=== PATIENT | male | born 1940 | race Caucasian/White ===

== ENCOUNTER 2017-08-21 10:27 | Emergency (ER) | payer MEDICARE ==
[~2017-08-21 10:27] MED LIST: AFLI2VIA IO; ASPI-1012 PO; CHOL50004 PO; FINA5TAB41 PO; LATA2.5D2 OS; LUTE1CAP4 PO; MVIT PO; OXYC5 PO; PANT40TA25 PO; PREG75 PO; TERA5CAP4 PO; VITA1TAB22 PO; [UNRECOGNIZED DRUG - OTHER] PO; [UNRECOGNIZED DRUG - OTHER] PO
== END 2017-08-21 12:03 | disposition home or self-care (01) ==
LOC: EDH 10:27
DX: S62.646A Nondisplaced fracture of proximal phalanx of right little finger, initial encounter for closed fracture (principal); S80.02XA Contusion of left knee, initial encounter; S80.01XA Contusion of right knee, initial encounter; Z88.0 Allergy status to penicillin; Z96.649 Presence of unspecified artificial hip joint; Z87.891 Personal history of nicotine dependence; W01.0XXA Fall on same level from slipping, tripping and stumbling without subsequent striking against object, initial encounter; Y93.01 Activity, walking, marching and hiking; Y92.89 Other specified places as the place of occurrence of the external cause; Y99.8 Other external cause status
CPT/HCPCS: 29130; 70450; 73130; 73562

== ENCOUNTER → 2018-04-08 | Outpatient (CLI) | payer MEDICARE ==
[~2018-04-08] MED LIST changes: +IOHEXOL 350 MG/ML 100ML INFUS..BTL IV ONE
== END | disposition home or self-care (01) ==
LOC: RAH 07:47
PROVIDERS: ATTEND Internal Medicine
DX: K76.0 Fatty (change of) liver, not elsewhere classified (principal); R16.1 Splenomegaly, not elsewhere classified; K43.9 Ventral hernia without obstruction or gangrene; M47.815 Spondylosis without myelopathy or radiculopathy, thoracolumbar region; I70.90 Unspecified atherosclerosis; J84.10 Pulmonary fibrosis, unspecified; Z90.411 Acquired partial absence of pancreas; Z90.49 Acquired absence of other specified parts of digestive tract
CPT/HCPCS: 74170; Q9967

== ENCOUNTER 2018-08-27 05:30 | Day surgery (SDC) | payer MEDICARE ==
[~2018-08-27] VITALS: Ht 180.3 cm; Wt 97.1 kg
[~2018-08-27 05:30] MED LIST changes: -IOHEXOL 350 MG/ML 100ML INFUS..BTL IV ONE
[2018-08-27] MEDS ORDERED: SODIUM CHLORIDE 0.9% 1000ML 1,000 ML IV ONE (05:52)
[2018-08-27 06:17] VITALS: BP 125/72
[2018-08-27] MEDS ORDERED: TAMS-1 PO (06:29)
[2018-08-27] MEDS ORDERED: [UNRECOGNIZED DRUG - OTHER] (06:30)
[2018-08-27] MEDS ORDERED: PROPOFOL 10 MG/ML 20ML VIAL IV ONE (06:35)
[2018-08-27 06:46] VITALS: BP 94/55
[2018-08-27 06:50] VITALS: BP 101/65
[2018-08-27 06:55] VITALS: BP 101/64
[2018-08-27 07:00] VITALS: BP 103/68
[2018-08-27 07:06] VITALS: BP 105/71
== END 2018-08-27 07:16 | disposition home or self-care (01) ==
LOC: ENDO 05:30 → DAH 05:30 → ENDO 07:16
PROVIDERS: ATTEND Internal Medicine
DX: K29.50 Unspecified chronic gastritis without bleeding (principal); B96.81 Helicobacter pylori [H. pylori] as the cause of diseases classified elsewhere; K31.89 Other diseases of stomach and duodenum; Z98.0 Intestinal bypass and anastomosis status; Z68.30 Body mass index [BMI] 30.0-30.9, adult; M19.90 Unspecified osteoarthritis, unspecified site; Z79.899 Other long term (current) drug therapy; Z98.49 Cataract extraction status, unspecified eye; K86.81 Exocrine pancreatic insufficiency; I10 Essential (primary) hypertension; K21.9 Gastro-esophageal reflux disease without esophagitis
CPT/HCPCS: 43239; 88305; A4606; J2704; J7030

== ENCOUNTER → 2019-06-17 | Outpatient (CLI) | payer MEDICARE ==
[~2019-06-17] MED LIST changes: -AFLI2VIA IO; +FERR-82 PO; +HYDR-4457 PO; +HYDR25TA PO; +IOHEXOL 350 MG/ML 100ML INFUS..BTL IV ONE; -LATA2.5D2 OS; +LIPA1CAP29 PO; -LUTE1CAP4 PO; -OXYC5 PO; -PREG75 PO; +TAMS-1 PO; -TERA5CAP4 PO; -VITA1TAB22 PO; +[UNRECOGNIZED DRUG - CODE] PO; -[UNRECOGNIZED DRUG - OTHER] PO; -[UNRECOGNIZED DRUG - OTHER] PO
== END | disposition home or self-care (01) ==
LOC: RAH 08:30
PROVIDERS: ATTEND Internal Medicine
DX: K42.9 Umbilical hernia without obstruction or gangrene (principal); K86.2 Cyst of pancreas; M47.816 Spondylosis without myelopathy or radiculopathy, lumbar region; Z90.49 Acquired absence of other specified parts of digestive tract; Z90.411 Acquired partial absence of pancreas
CPT/HCPCS: 74178; Q9967

== ENCOUNTER → 2019-12-24 | Outpatient (CLI) | payer MEDICARE ==
[~2019-12-24] MED LIST changes: -IOHEXOL 350 MG/ML 100ML INFUS..BTL IV ONE; +IOHEXOL-350 50ML VIAL IV ONE; -PANT40TA25 PO; +PANT40TA54 PO
== END | disposition home or self-care (01) ==
LOC: RAH 07:52
PROVIDERS: ATTEND Internal Medicine
DX: K86.2 Cyst of pancreas (principal); R18.8 Other ascites; K86.89 Other specified diseases of pancreas; N20.0 Calculus of kidney
CPT/HCPCS: 74170; Q9967 ×2

== ENCOUNTER → 2020-01-21 | Outpatient (CLI) | payer MEDICARE ==
[~2020-01-21] MED LIST changes: +GADODIAMIDE 10 MMOL/20 ML VIAL IV ONE; -IOHEXOL-350 50ML VIAL IV ONE
== END | disposition home or self-care (01) ==
LOC: RAH 07:49
PROVIDERS: ATTEND Internal Medicine
DX: K86.2 Cyst of pancreas (principal)
CPT/HCPCS: 74183; A9579

== ENCOUNTER → 2020-08-24 | Outpatient (CLI) | payer MEDICARE ==
[~2020-08-24] MED LIST changes: -GADODIAMIDE 10 MMOL/20 ML VIAL IV ONE; +GADOTERATE MEGLUMINE 10 MMOL/20 ML VIAL IV ONE
== END | disposition home or self-care (01) ==
LOC: RAH 07:40
PROVIDERS: ATTEND Internal Medicine
DX: K86.2 Cyst of pancreas (principal); K86.89 Other specified diseases of pancreas; Z90.49 Acquired absence of other specified parts of digestive tract
CPT/HCPCS: 74182; 76376; A9575; 74183

== ENCOUNTER 2021-05-31 20:22 | Emergency (ER) | payer MEDICARE ==
[~2021-05-31] VITALS: Ht 182.9 cm; Wt 93.9 kg
[~2021-05-31 20:22] MED LIST changes: -GADOTERATE MEGLUMINE 10 MMOL/20 ML VIAL IV ONE
[2021-05-31 21:00] VITALS: BP 122/56
[2021-05-31 22:15] LABS: BASOPHILS % (AUTO) 0.3 % (0.0-5.0); EOSINOPHILS % (AUTO) 0.8 % (0.0-8.0); HEMATOCRIT 39.2 % (42-54); LYMPHOCYTES % (AUTO) 14.6 % (21.0-51.0); MEAN CORPUSCULAR HEMOGLOBIN 28.4 pg (27.0-33.0); MEAN CORPUSCULAR HGB CONC 32.7 g/dL (32.0-36.0); MEAN CORPUSCULAR VOLUME 86.9 fL (79-99); MONOCYTES % (AUTO) 10.6 % (3.0-13.0); NEUTROPHILS % (AUTO) 73.4 % (40.0-77.0); PLATELET COUNT (AUTO) 145 K/uL (130-400); RED BLOOD CELL COUNT(AUTO) 4.51 MIL/uL (4.50-6.20); RED CELL DISTRIBUTION WIDTH 14.2 % (11.0-15.5)
[2021-05-31 22:23] LABS: CREATININE 0.9 mg/dL (0.5-1.5); POTASSIUM 3.5 mmol/L (3.5-5.1)
[2021-05-31 22:28] LABS: ALBUMIN 3.5 g/dL (3.5-5.0); BILIRUBIN,TOTAL 0.4 mg/dL (0.2-1.0); TOTAL PROTEIN, SERUM 6.9 g/dL (6.0-8.3)
== END 2021-06-01 00:01 | disposition home or self-care (01) ==
LOC: EDH 20:22
DX: R55 Syncope and collapse (principal); R42 Dizziness and giddiness; R00.2 Palpitations; E78.00 Pure hypercholesterolemia, unspecified; I10 Essential (primary) hypertension; Z88.0 Allergy status to penicillin; Z88.5 Allergy status to narcotic agent; Z79.82 Long term (current) use of aspirin; Z79.899 Other long term (current) drug therapy
CPT/HCPCS: 36415; 71045; 80053; 84484; 85025; 93005

== ENCOUNTER 2021-08-10 21:50 | Emergency (ER) | payer MEDICARE ==
[~2021-08-10] VITALS: Ht 185.4 cm; Wt 90.7 kg
[2021-08-10 22:34] LABS: BASOPHILS % (AUTO) 0.2 % (0.0-5.0); EOSINOPHILS % (AUTO) 0.6 % (0.0-8.0); HEMATOCRIT 35.4 % (42-54); LYMPHOCYTES % (AUTO) 25.5 % (21.0-51.0); MEAN CORPUSCULAR HEMOGLOBIN 27.7 pg (27.0-33.0); MEAN CORPUSCULAR HGB CONC 32.5 g/dL (32.0-36.0); MEAN CORPUSCULAR VOLUME 85.3 fL (79-99); MONOCYTES % (AUTO) 12.5 % (3.0-13.0); NEUTROPHILS % (AUTO) 60.9 % (40.0-77.0); PLATELET COUNT (AUTO) 178 K/uL (130-400); RED BLOOD CELL COUNT(AUTO) 4.15 MIL/uL (4.50-6.20); RED CELL DISTRIBUTION WIDTH 13.1 % (11.0-15.5); WHITE BLOOD COUNT (AUTO) 6.5 K/uL (4.8-10.8)
[2021-08-10 22:37] LABS: APPEARANCE,URINE Clear (CLEAR); BILIRUBIN,URINE Negative (NEGATIVE); COLOR,URINE Yellow (YELLOW); GLUCOSE, URINE (UA) Negative (NEGATIVE); KETONES,URINE Negative (NEGATIVE); LEUKOCYTE ESTERASE ,URINE Negative (NEGATIVE); NITRATE,URINE Negative (NEGATIVE); OCCULT BLOOD,URINE Negative (NEGATIVE); PROTEIN,URINE Negative (NEGATIVE); UROBILINOGEN,URINE 0.2 mg/dL (0.2-1.0)
[2021-08-10 22:44] LABS: CREATININE 0.7 mg/dL (0.5-1.5); POTASSIUM 3.7 mmol/L (3.5-5.1)
[2021-08-10 22:49] LABS: ALBUMIN 3.3 g/dL (3.5-5.0); BILIRUBIN,TOTAL 0.4 mg/dL (0.2-1.0); TOTAL PROTEIN, SERUM 6.9 g/dL (6.0-8.3)
[2021-08-10] MEDS ORDERED: METOPROLOL TARTRATE 1 MG/ML 5ML VIAL IV ONE (23:00)
[2021-08-10] MEDS ORDERED: METOPROLOL TARTRATE 50 MG TAB PO ONE (23:00)
[2021-08-10 23:08] LABS: PHOSPHORUS 3.8 mg/dL (2.5-4.9)
[2021-08-10 23:13] LABS: INR 1.04 (0.85-1.15); PROTHROMBIN TIME 11.3 SEC (9.6-11.6)
[2021-08-10] MEDS ORDERED: RIVA1TAB PO (23:42)
[2021-08-10] MEDS ORDERED: METO50TA9 PO (23:42)
[2021-08-11 00:03] VITALS: BP 111/60
[2021-08-11] MEDS: ENOXAPARIN SODIUM 1 MG/KG SQ SCH ×2 (00:04→00:08)
[2021-08-11] MEDS ORDERED: ENOXAPARIN SODIUM 100 MG/1 ML SQ ONE (00:06)
== END 2021-08-11 00:11 | disposition home or self-care (01) ==
LOC: EDH 21:50
DX: I48.91 Unspecified atrial fibrillation (principal); Z20.822 Contact with and (suspected) exposure to COVID-19; E78.00 Pure hypercholesterolemia, unspecified; I10 Essential (primary) hypertension; Z88.0 Allergy status to penicillin; Z88.5 Allergy status to narcotic agent; Z79.82 Long term (current) use of aspirin; Z79.899 Other long term (current) drug therapy
CPT/HCPCS: 36415; 71045; 80053; 81003; 83735; 84100; 84484; 85025; 85610; 87635; 87804 ×2; 93005 ×2; 96372 ×2; 96374; 99285; C9803; J1650; J3490

== ENCOUNTER → 2021-08-16 | Outpatient (CLI) | payer MEDICARE ==
[~2021-08-16] MED LIST changes: +METO50TA9 PO; +RIVA1TAB PO
== END | disposition home or self-care (01) ==
LOC: SHCH 13:12
PROVIDERS: ATTEND Internal Medicine
DX: I08.8 Other rheumatic multiple valve diseases (principal)
CPT/HCPCS: 93306

== ENCOUNTER → 2022-05-19 | Outpatient (CLI) | payer MEDICARE | END | disposition home or self-care (01) | LOC: RAH 11:13 | PROVIDERS: ATTEND Internal Medicine Hematology & Oncology | DX: K86.2 Cyst of pancreas (principal); Z90.49 Acquired absence of other specified parts of digestive tract | CPT/HCPCS: 76700 ==